=== PATIENT | male | born 1990 | race Caucasian/White ===

== ENCOUNTER 2017-12-22 15:25 | Emergency (ER) | payer OTHER ==
[2017-12-22] MEDS ORDERED: IBUPROFEN 400 MG TABLET PO STA (16:53)
[2017-12-22] MEDS ORDERED: ACETAMINOPHEN 325 MG TABLET PO STA (16:53)
--- NOTE | 2017-12-22 16:59 | ED Physician Documentation ---
History of Present Illness - Stated complaint Stated Complaint: L SHOULDER INJ - Chief complaint Chief Complaint: Ext Problem - Additonal information Additional information: hx from pt 27 y/o male AD [place] hit playing football (but got the first down) L shoulder and now upper lateral L chest pain Review of Systems Cardiac: reports: Chest pain / pressure Musculoskeletal: reports: Joint pain. denies: Neck pain Neurologic: denies: Focal weakness, Numbness, Headache, Head injury PD PAST MEDICAL HISTORY - Past Medical History Past Medical History: No - Past Surgical History Past Surgical History: No - Present Medications Home Medications: Ambulatory Orders Medication Instructions Recorded Confirmed HYDROcod/ACETAM 5/325 [[place] 5/325] 1 ea PO Q6H PRN #6 tablet 12/22/17 Ibuprofen [Motrin] 800 mg PO Q8H PRN #30 tablet 12/22/17 - Allergies Allergies/Adverse Reactions: Allergies Allergy/AdvReac Type Severity Reaction Status Date / Time No Known Drug Allergies Allergy Verified 12/22/17 15:40 - Social History Does the pt smoke?: No Smoking Status: Never smoker Does the pt drink ETOH?: No Does the pt have substance abuse?: No - Immunizations Immunizations are current?: Yes - POLST Patient has POLST: No PD ED PE NORMAL - Vitals Vital signs reviewed: Yes - HEENT HEENT: Atraumatic - Neck Neck: No bony TTP - Cardiac Cardiac: RRR - Respiratory Respiratory: No respiratory distress - Abdomen Abdomen: Soft, Non tender - Extremities Extremities: Other (TTP distal clavicle and later uperior shoulder, limited ROM 2/2 pain, some upper left chest wall pain as well s crepitus and good breath sounds, MSV intact) - Neuro Neuro: Alert and oriented X 3, No motor deficit, No sensory deficit Results - Vitals Vitals: Vital Signs - 24 hr 12/22/17 15:36 Temperature 36.3 C L Heart Rate 102 H Respiratory 16 Rate Blood Pressure 118/80 O2 Saturation 100 Oxygen O2 Source Room air - Rads (name of study) CXR Radiology: See rad report (NACPD) shoulder Radiology: See rad report (minimally displaced oblique fx mid clavicle) PD MEDICAL DECISION MAKING - Sepsis Event Vital Signs: Vital Signs - 24 hr 12/22/17 15:36 Temperature 36.3 C L Heart Rate 102 H Respiratory 16 Rate Blood Pressure 118/80 O2 Saturation 100 Oxygen O2 Source Room air Departure - Departure Disposition: 01 Home, Self Care Clinical Impression: Clavicle fracture Qualifiers: Encounter type: initial encounter Clavicle location: shaft Fracture type: closed Fracture alignment: nondisplaced Laterality: left Qualified Code(s): S42.025A - Nondisplaced fracture of shaft of left clavicle, initial encounter for closed fracture Condition: Good Instructions: ED Fx Clavicle Prescriptions: HYDROcod/ACETAM 5/325 [[place] 5/325] 1 ea PO Q6H PRN #6 tablet PRN Reason: Severe Pain Ibuprofen [Motrin] 800 mg PO Q8H PRN #30 tablet PRN Reason: Pain Comments: Wear the sling as needed for comfort but be sure to take your arm weight and do some gentle shoulder range of motion exercises to prevent the shoulder from "freezing" Follow up with [facility] Forms: Activity restrictions
--- NOTE | 2017-12-22 17:44 | XRAY Report ---
Reason: hit in football Procedure Date: 12/22/2017 Accession Number: [id number] / [id number] Procedure: XR - Shoulder 3 View LT CPT Code: FULL RESULT: EXAM: LEFT SHOULDER RADIOGRAPHY EXAM DATE: 12/22/2017 05:05 PM. CLINICAL HISTORY: Trauma, pain. COMPARISON: None. TECHNIQUE: 3 views. FINDINGS: Bones: Minimally displaced oblique fracture of the clavicle at the junction of middle and lateral thirds. Otherwise unremarkable. Joints: The glenohumeral and acromioclavicular joints are normal. Soft tissues: Localized soft tissue swelling. Clear visualized lung. IMPRESSION: Left clavicle fracture. RADIA
--- NOTE | 2017-12-22 17:44 | XRAY Report ---
Reason: hit in football Procedure Date: 12/22/2017 Accession Number: [id number] / [id number] Procedure: XR - Chest 2 View X-Ray CPT Code: 89485 FULL RESULT: EXAM: CHEST RADIOGRAPHY EXAM DATE: 12/22/2017 05:05 PM. CLINICAL HISTORY: Trauma, pain. COMPARISON: None. TECHNIQUE: 2 views. FINDINGS: Lungs/Pleura: Clear. No effusion or pneumothorax. Mediastinum: Heart and mediastinal contours are unremarkable. Upper lobe vessels not distended. Other: See separate report for left clavicle fracture. IMPRESSION: No acute cardiopulmonary disease. RADIA
[2017-12-22 17:58] VITALS: BP 124/78
== END 2017-12-22 17:59 | disposition home or self-care (01) ==
LOC: ED 15:25
DX: S42.025A Nondisplaced fracture of shaft of left clavicle, initial encounter for closed fracture (principal); Y93.61 Activity, american tackle football; Y99.8 Other external cause status
CPT/HCPCS: 71046; 73030; 99283; A9270

== ENCOUNTER 2019-04-22 13:50 | Emergency (ER) | payer OTHER ==
[2019-04-22 13:58] VITALS: BP 144/87
--- NOTE | 2019-04-22 14:08 | ED Physician Documentation ---
PD HPI OPHTHO - Stated complaint Stated Complaint: LT EYE IRRATATION - Chief complaint Chief Complaint: Heent - History obtained from History obtained from: Patient - History of Present Illness Timing - onset: Other (28-year-old gentleman who suddenly at 5:00 last night developed bilateral itching and redness and swelling of both eyes. No new allergic exposures. Vision is not affected. He does wear contacts but has not worn his contacts since then.) Review of Systems Constitutional: reports: Reviewed and negative Ears: reports: Reviewed and negative Nose: reports: Reviewed and negative PD PAST MEDICAL HISTORY - Past Surgical History Past Surgical History: No - Present Medications Home Medications: Ambulatory Orders Medication Instructions Recorded Confirmed HYDROcod/ACETAM 5/325 [[place] 5/325] 1 ea PO Q6H PRN #6 tablet 12/22/17 Ibuprofen [Motrin] 800 mg PO Q8H PRN #30 tablet 12/22/17 Tobramycin/Dexamethasone [Tobradex 10 drops EACHEYE QID #1 drops.susp 04/22/19 Eye Drops] - Allergies Allergies/Adverse Reactions: Allergies Allergy/AdvReac Type Severity Reaction Status Date / Time No Known Drug Allergies Allergy Verified 04/22/19 13:55 - Social History Does the pt smoke?: No Smoking Status: Never smoker Does the pt drink ETOH?: No Does the pt have substance abuse?: No - Immunizations Immunizations are current?: Yes - POLST Patient has POLST: No PD ED PE NORMAL - Vitals Vital signs reviewed: Yes - General General: Alert and oriented X 3, No acute distress - HEENT HEENT: PERRL, EOMI, Other (Bilateral conjunctivitis with mild edema of the lids, left worse than right. No floor seen uptake.) - Neuro Neuro: Alert and oriented X 3, Normal speech - Psych Psych: Normal mood, Normal affect Results - Vitals Vitals: Vital Signs - 24 hr 04/22/19 13:56 Temperature 37 C Heart Rate 72 Respiratory 15 Rate Blood Pressure 144/87 H O2 Saturation 99 Oxygen O2 Source Room air PD MEDICAL DECISION MAKING - ED course ED course: History is most consistent with allergic conjunctivitis, less so bacterial, he is treated with TobraDex. 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 Return for new or worsening symptoms. Do not wear your contacts for at least 1 week after complete resolution. Discharge Date/Time: 04/22/19 14:11
== END 2019-04-22 14:11 | disposition home or self-care (01) ==
LOC: ED 13:50
DX: H10.13 Acute atopic conjunctivitis, bilateral (principal)
CPT/HCPCS: 99282; 99284